=== PATIENT | female | born 1995 | race Two or more races ===

== ENCOUNTER 2020-04-01 18:20 | Observation (INO) | payer SELFPAY ==
[2020-04-01] MEDS ORDERED: IV RINGERS,LACTATED 1000ML 1,000 ML IV SCH (18:32)
[2020-04-01 18:42] LABS: BILIRUBIN,URINE NEGATIVE (NEG); CLARITY,URINE CLEAR; COLOR,URINE YELLOW; NITRITE,URINE NEGATIVE (NEG); PH,URINE 6.5 (<5.0-8.0); PROTEIN,URINE NEGATIVE (NEG-TRACE)
[2020-04-01 18:46] LABS: BACTERIA,URINE MODERATE /HPF (0-FEW); RBC,URINE 0 /HPF (0-2)
== END 2020-04-01 19:57 | disposition home or self-care (01) ==
LOC: 3 SO LND 18:20
PROVIDERS: ADMIT Obstetrics & Gynecology; ATTEND Obstetrics & Gynecology
DX: O36.8120 Decreased fetal movements, second trimester, not applicable or unspecified (principal); Z3A.20 20 weeks gestation of pregnancy; Z79.899 Other long term (current) drug therapy
CPT/HCPCS: 81001; 87086; G0378; G0379; 59025